=== PATIENT | male | born 1990 | race Caucasian/White ===

== ENCOUNTER 2023-05-18 15:51 | Outpatient (CLI) | payer OTHER, SELFPAY ==
--- NOTE | 2023-05-18 16:00 | CRLHL7_ITS ---
For Patients: As a result of the Century Cures Act, medical imaging exams and procedure reports are released immediately into your electronic medical record. You may view this report before your referring provider. If you have questions, please contact your health care provider. Indication: LOCALIZED SWELLING, PALPABLE LUMP Technique: Grayscale and color Doppler ultrasound of the right submandibular space performed. Comparison: None Findings: There is a lymph node within the submandibular region measuring 2.0 x 0.6 x 1.3 cm. Normal central fatty hilum is present. Normal internal vascularity. Other smaller lymph nodes are present in the adjacent tissues. Impression: Mildly reactive right submandibular lymph node. Dictated by Ry Ewing MD @ 05/21/2023 9:35:42 AM (Electronically Signed)
== END 2023-05-18 15:52 | disposition home or self-care (01) ==
LOC: US 15:53
PROVIDERS: PCP Family Medicine; Visit Provider Otolaryngology
DX: R22.1 Localized swelling, mass and lump, neck (principal)
CPT/HCPCS: 76536

== ENCOUNTER 2023-07-14 09:51 | Emergency (ER) | payer OTHER, SELFPAY ==
[2023-07-14 10:07] VITALS: BP 142/85; PULSE 86; RESP 18; TEMP 36.4; O2SAT 98
--- NOTE | 2023-07-14 11:20 | ED.GENADULT ---
HPI - General Adult General Date Seen: 07/14/23 Chief complaint: Cough Stated complaint: Cough Time Seen by Provider: 07/14/23 11:03 Source: patient Mode of arrival: ambulatory Limitations: no limitations History of Present Illness HPI narrative: Patient is a 33-year-old male who is here for evaluation of cough. He says he has been coughing for few days, it is getting better, a couple of his kids are also sick with cough. Declines COVID/flu/RSV testing. He says he is mostly here because he has a CT scan coming up in a couple of days any does not want have to miss that because of cough. He says that Dr. Boggs told him that steroids might help. No fevers or shortness of breath. Related Data Home Medications Medication Instructions Recorded Confirmed omeprazole 20 mg capsule,delayed 20 mg PO QDAY 12/04/22 06/26/23 release Previous Rx's Medication Instructions Recorded azithromycin 250 mg tablet See Rx Instructions PO .COMPLEX #6 05/08/23 (Zithromax Z-Atilio) tabs amoxicillin 875 mg-potassium 1 tab PO BID #20 tabs 05/30/23 clavulanate 125 mg tablet amoxicillin 875 mg-potassium 1 tab PO .bid - daily 20 days #30 06/26/23 clavulanate 125 mg tablet tabs famotidine 20 mg tablet (Pepcid) 20 mg PO BID 30 days #60 tabs 06/26/23 prednisone 20 mg tablet 20 mg PO BID #10 tabs 07/14/23 Allergies Allergy/AdvReac Type Severity Reaction Status Date / Time No Known Drug Allergies Allergy Verified 06/26/23 13:55 [facility] Social History Smoking Status: Current every day smoker Exam Narrative: Exam Narrative: Vital signs as noted above. In general, an alert, well-appearing patient. Breathing easily. Head: Normocephalic, atraumatic. Eyes: Pupils are equal reactive. Extraocular movements are full. Conjunctivae are normal. ENT: Mucous membranes are moist. Neck: Supple without lymphadenopathy. Heart: Regular rate and rhythm. No murmur or rub. Lungs: Clear bilaterally. No increased work of breathing, crackles or wheezes. Neurologic: Patient is alert and oriented to person and place. Speech is fluent. Face is symmetric. Moves all extremities equally. Affect: Normal. Skin: Warm and dry. Well perfused. Const: Vital Signs, click to edit/add: Vital Signs - 24 hr 07/14/23 10:07 Temperature 97.6 F Pulse Rate [Right Pulse Oximeter] 86 Respiratory Rate 18 Blood Pressure [Ri ght Upper Arm] 142/85 H Pulse Oximetry 98 Oxygen Delivery Me thod Room Air Documenting provider has reviewed patient's vital signs: yes Course Course ED Course: Reviewed with him that I think symptoms are viral, I do not hear any evidence of bronchospasm or pneumonia today. He would like to try prednisone so I have prescribed that for him, but discussed that I would not anticipate this will fix his cough. Symptoms will likely resolve without intervention over the next week or 2, primary care follow-up if not improving. Return for high fevers, shortness of breath or other worsening. Vital Signs Vital signs: Initial Vital Signs Temperature 97.6 F 07/14/23 10:07 Temperature Source Temporal Artery Scan 07/14/23 10:07 Pulse Rate 86 07/14/23 10:07 Respiratory Rate 18 07/14/23 10:07 Blood Pressure 142/85 H 07/14/23 10:07 Blood Pressure Mean 104 07/14/23 10:07 Blood Pressure Position Sitting 07/14/23 10:07 Pulse Oximetry 98 07/14/23 10:07 Oxygen Delivery Method Room Air 07/14/23 10:07 Vital Signs Temperature 97.6 F 07/14/23 10:07 Pulse Rate 86 07/14/23 10:07 Respiratory Rate 18 07/14/23 10:07 Blood Pressure 142/85 H 07/14/23 10:07 Pulse Oximetry 98 07/14/23 10:07 Oxygen Delivery Method Room Air 07/14/23 10:07 Temperature 97.6 F 07/14/23 10:07 Pulse Rate 86 07/14/23 10:07 Respiratory Rate 18 07/14/23 10:07 Blood Pressure 142/85 H 07/14/23 10:07 Pulse Oximetry 98 07/14/23 10:07 Oxygen Delivery Method Room Air 07/14/23 10:07 Discharge Plan Discharge Clinical Impression: Cough Patient Disposition: Home, Self-Care Condition: Stable Instructions: Acute Cough (ED) Additional Instructions: Prednisone as prescribed. Follow up with primary doctor if not improving over the next couple of weeks. Return for high fevers, chest pain, shortness of breath or other worsening. Prescriptions: New prednisone 20 mg tablet 20 mg PO BID Qty: 10 0RF No Action omeprazole 20 mg capsule,delayed release(DR/EC) 20 mg PO QDAY Patient Comments: TAKE 1 CAPSULE BY MOUTH ONCE DAILY WITH EVENING MEAL azithromycin [Zithromax Z-Atilio] 250 mg tablet See Rx Instructions PO .COMPLEX Qty: 6 0RF Rx Instructions: For 250 mg dose pack: take 500 mg today (day 1), then 250 mg for 4 days (days 2-5) PO amoxicillin-pot clavulanate 875-125 mg tablet 1 tab PO .bid - daily 20 Days Qty: 30 0RF Rx Instructions: Take 1 by mouth twice a day for 10 days and 1 by mouth daily for 10 days famotidine [Pepcid] 20 mg tablet 20 mg PO BID 30 Days Qty: 60 11RF amoxicillin-pot clavulanate 875-125 mg tablet 1 tab PO BID Qty: 20 0RF Follow Up/Referrals: Ry Toscano MD [Primary Care Provider] - [facility]
== END 2023-07-14 11:37 | disposition home or self-care (01) ==
LOC: ED 11:25
PROVIDERS: Emergency Provider Emergency Medicine; PCP Family Medicine
DX: R05.9 Cough, unspecified (principal)
CPT/HCPCS: 99283; 99284

== ENCOUNTER 2023-07-20 14:24 | Outpatient (CLI) | payer OTHER, SELFPAY ==
--- NOTE | 2023-07-20 15:00 | CRLHL7_ITS ---
For Patients: As a result of the Cures Act, medical imaging exams and procedure reports are released immediately into your electronic medical record. You may view this report before your referring provider. If you have questions, please contact your health care provider. INDICATION: Acute pharyngitis. TECHNIQUE: CT images were acquired through the neck soft tissues from above the orbits to the superior mediastinum during infusion of iodinated contrast. Multiplanar reconstructions. FINDINGS: Mildly prominent adenoidal lymphoid tissue in the nasopharynx. There is mild enlargement of the bilateral palatine tonsils suggesting acute inflammation. No tonsillar/peritonsillar abscess. A calcification is noted within the left tonsil consistent with chronic tonsillar inflammation. Soft palate is mildly edematous. The parapharyngeal fat is not distorted or displaced. There are numerous lymph nodes in the upper jugular lymph node chains and in the submandibular spaces consistent with reactive adenopathy. No pathologic fluid collection in the neck soft tissues. The epiglottis is not abnormally enlarged. The supraglottic region larynx and subglottic trachea are unremarkable allowing for some respiratory artifact. Thyroid is not abnormally enlarged. IMPRESSION: 1. Findings consistent with acute pharyngitis and reactive lymphadenopathy in the neck soft tissues. 2. No evidence of tonsillar or peritonsillar abscess nor evidence of upper airway obstruction at this time. Please note that all CT scans at this facility use dose modulation, iterative reconstruction, and/or weight-based dosing when appropriate to reduce radiation dose to as low as reasonably achievable. Dictated by Mack Corona MD @ 07/22/2023 8:14:00 PM (Electronically Signed)
== END 2023-07-20 14:25 | disposition home or self-care (01) ==
LOC: CT 14:24
PROVIDERS: PCP Family Medicine; Visit Provider Otolaryngology
DX: J02.9 Acute pharyngitis, unspecified (principal)
CPT/HCPCS: 70491; Q9967

== ENCOUNTER 2023-09-03 16:04 | Outpatient (CLI) | payer OTHER, SELFPAY | END 2023-09-03 16:05 | disposition home or self-care (01) | PROVIDERS: PCP Family Medicine; Visit Provider Family Medicine | DX: R53.83 Other fatigue (principal); R76.8 Other specified abnormal immunological findings in serum; Z11.59 Encounter for screening for other viral diseases | CPT/HCPCS: 80053; 84443; 87522 ==

== ENCOUNTER 2023-10-24 16:44 | Outpatient (CLI) | payer OTHER, SELFPAY ==
--- NOTE | 2023-10-24 17:00 | CRLHL7_ITS ---
For Patients: As a result of the Century Cures Act, medical imaging exams and procedure reports are released immediately into your electronic medical record. You may view this report before your referring provider. If you have questions, please contact your health care provider. INDICATION: Bloating, fullness, h/o hep C COMPARISON: 03/27/2022 TECHNIQUE: Real time moore scale imaging and color Doppler analysis was performed of the right upper quadrant. FINDINGS: The visualized patient`s liver is of normal size and has uniform echogenicity. There is a normal appearance of the hepatic IVC and proximal abdominal aorta. There is no evidence of ascites. The gallbladder is of normal size and there is no evidence of intraluminal stones or sludge. The gallbladder wall measures 3.1 mm in thickness. The common bile duct is of normal size and measures 5.8 mm in diameter at the level of the tony hepatis. The visualized pancreas appears normal. There is no evidence of a stone or hydronephrosis within the right kidney. The right kidney measures 12.1 cm in length. IMPRESSION: The visualized liver appears normal without intrahepatic mass or ascites. Normal gallbladder. Dictated by Ry Ewing MD @ 10/25/2023 11:50:50 AM (Electronically Signed)
== END 2023-10-24 16:45 | disposition home or self-care (01) ==
LOC: US 16:45
PROVIDERS: PCP Family Medicine; Visit Provider Family Medicine
DX: R14.0 Abdominal distension (gaseous) (principal); K21.9 Gastro-esophageal reflux disease without esophagitis
CPT/HCPCS: 76705

== ENCOUNTER 2023-11-27 16:18 | Outpatient (CLI) | payer OTHER, SELFPAY ==
--- NOTE | 2023-11-27 16:45 | CRLHL7_ITS ---
For Patients: As a result of the Century Cures Act, medical imaging exams and procedure reports are released immediately into your electronic medical record. You may view this report before your referring provider. If you have questions, please contact your health care provider. Indication: Sinus infections. Technique: Noncontrast axial CT of the paranasal sinuses with coronal reformats are provided. No comparisons. Findings: The visualized paranasal sinuses are clear. The ostiomeatal complexes are patent bilaterally. The visualized intraorbital contents appear within normal limits. Mild leftward nasal septal deviation. Impression: 1. Mild leftward nasal septal deviation. 2. Otherwise, unremarkable CT of the paranasal sinuses. Please note that all CT scans at this facility use dose modulation, iterative reconstruction, and/or weight-based dosing when appropriate to reduce radiation dose to as low as reasonably achievable. Dictated by Saul Sethi MD @ 11/27/2023 5:34:06 PM (Electronically Signed)
== END 2023-11-27 16:19 | disposition home or self-care (01) ==
LOC: CT 16:18
PROVIDERS: PCP Nurse Practitioner Family; Visit Provider Nurse Practitioner Family
DX: J34.89 Other specified disorders of nose and nasal sinuses (principal); J34.2 Deviated nasal septum
CPT/HCPCS: 70486

== ENCOUNTER 2023-12-21 10:48 | Outpatient (CLI) | payer OTHER, SELFPAY ==
--- NOTE | 2023-12-21 11:00 | CT_ITS ---
Patient: CEZAR GUSMAN Facility:?[facility] Patient ID:?[id number] Site Patient ID:?[id number]. Site :?1990 Study:?CT-Chest W/O-12/21/2023 11:59:48 AM Ordering Physician:DOYLE Final Report: Indication: Abnormal CHEST XRAY ,FB SENSATION IN THE THROAT Technique: CT of the chest was performed without intravenous contrast. Please note that all CT scans at this facility use dose modulation, iterative reconstruction, and/or weight-based dosing when appropriate to reduce radiation dose to as low as reasonably achievable. Comparison: Chest radiograph 12/14/2023 Findings: Medical devices: None. Thyroid: Normal. Lymph nodes: Limited evaluation without IV contrast. No supraclavicular, axillary, mediastinal, or hilar lymphadenopathy. Vasculature: Limited evaluation without IV contrast. Aorta and main pulmonary artery diameters are within normal range. Heart: No coronary artery calcification. No pericardial effusion. Other mediastinal structures: No significant abnormality. Lung parenchyma: No significant abnormality. Airways: No significant abnormality. Pleura: No significant abnormality. Chest wall: Minimal bilateral gynecomastia. Upper abdomen: No significant abnormality. Musculoskeletal: No significant abnormality. Impression: No intrathoracic abnormality is seen. Please note that all CT scans at this facility use dose modulation, iterative reconstruction, and/or weight-based dosing when appropriate to reduce radiation dose to as low as reasonably achievable. Dictated by Geronimo Christianson MD @ 12/21/2023 1:12:34 PM Signed by:?Geronimo Christianson MD @12/21/2023 1:12:34 PM (Electronic Signature)
--- NOTE | 2023-12-21 11:30 | CT_ITS ---
Patient: CEZAR GUSMAN Facility:?[facility] Patient ID:?[id number] Site Patient ID:?[id number]. Site :?1990 Study:?CT-ST Neck W/IV-12/21/2023 12:04:34 PM Ordering Physician:DOYLE Final Report: INDICATION: Foreign body sensation in the throat TECHNIQUE: CT neck was performed following administration of 98 mL of Isovue 370 IV contrast. COMPARISON: 07/22/2023. FINDINGS: Soft tissues: Normal. Pharynx/airway: The oropharynx, hypopharynx, larynx, and trachea are normal. Moderate narrowing of the nasopharynx. Major salivary glands: Normal. Thyroid: Normal. Lymph nodes: Scattered subcentimeter lymph nodes are present in the neck bilaterally, none of which is pathological by size or morphologic criteria. Persistent moderately enlarged bilateral palatine and adenoid tonsils. Vessels: Patent. Bones: Normal. Lung apices: Clear. Visualized brain parenchyma: Normal. Additional comment: Normal. IMPRESSION: Persistent moderately enlarged bilateral palatine and adenoid tonsils with moderate narrowing of the nasopharynx. Findings may represent tonsillar hypertrophy. Please note that all CT scans at this facility use dose modulation, iterative reconstruction, and/or weight-based dosing when appropriate to reduce radiation dose to as low as reasonably achievable. Dictated by Geronimo Christianson MD @ 12/21/2023 12:59:15 PM Signed by:?Geronimo Christianson MD @12/21/2023 12:59:15 PM (Electronic Signature)
== END 2023-12-21 10:49 | disposition home or self-care (01) ==
LOC: CT 10:53
PROVIDERS: PCP Nurse Practitioner Family; Visit Provider Otolaryngology
DX: R93.89 Abnormal findings on diagnostic imaging of other specified body structures (principal); J35.1 Hypertrophy of tonsils; R22.1 Localized swelling, mass and lump, neck
CPT/HCPCS: 70491; 71250; Q9967

== ENCOUNTER 2024-02-15 15:47 | Outpatient (CLI) | payer OTHER, SELFPAY ==
--- NOTE | 2024-02-15 16:00 | CT_ITS ---
Patient: CEZAR GUSMAN Facility:?[facility] Patient ID:?[id number] Site Patient ID:?[id number]. Site :?1990 Study:?CT-Abdomen/Pelvis W/ 150CC ISOVUE 270-02/15/2024 4:22:30 PM Ordering Physician:NANCY Final Report: INDICATION: Bloating. Gastroesophageal reflux disease. TECHNIQUE: CT images of the abdomen and pelvis following intravenous contrast. COMPARISON: None. FINDINGS: No concerning opacities in the visualized lungs. No pleural effusion. The heart size is normal. The liver, gallbladder, spleen, and pancreas are unremarkable. The adrenal glands and kidneys are unremarkable. The stomach is [id number] distended. No abnormally dilated loops of bowel. The appendix is unremarkable. The abdominal aorta is normal in caliber. No pathologically enlarged lymph nodes. Small fat containing umbilical hernia. No free fluid or free air. The urinary bladder is [id number] distended. The prostate gland is present. No aggressive osseous lesions. IMPRESSION: No acute abnormality in the abdomen or pelvis. Please note that all CT scans at this facility use dose modulation, iterative reconstruction, and/or weight-based dosing when appropriate to reduce radiation dose to as low as reasonably achievable. Dictated by Cristino Granados MD @ 02/17/2024 9:38:28 PM Signed by:?Cristino Granados MD @02/17/2024 9:38:28 PM (Electronic Signature)
== END 2024-02-15 15:48 | disposition home or self-care (01) ==
LOC: CT 15:48
PROVIDERS: PCP Nurse Practitioner Family; Visit Provider Internal Medicine Gastroenterology
DX: K21.9 Gastro-esophageal reflux disease without esophagitis (principal); R14.0 Abdominal distension (gaseous); K62.5 Hemorrhage of anus and rectum; R10.9 Unspecified abdominal pain; R19.7 Diarrhea, unspecified
CPT/HCPCS: 74177; Q9967

== ENCOUNTER 2025-02-13 10:42 | Outpatient (CLI) | payer BC, SELFPAY ==
--- NOTE | 2025-02-13 10:45 | CRLHL7_ITS ---
For Patients: As a result of the Century Cures Act, medical imaging exams and procedure reports are released immediately into your electronic medical record. You may view this report before your referring provider. If you have questions, please contact your health care provider. Indication: Lump felt at the right/anterior side of the neck Technique: Grayscale and color Doppler ultrasound of the right neck soft tissues performed. Comparison: CT neck 12/21/2023 Findings: Mildly prominent lymph node is present adjacent to the submandibular gland which measures 1.7 x 0.8 x 1.8 cm. Additional mildly prominent right anterior cervical lymph node is present which measures 1.9 x 0.7 x 0.9 cm. No abnormal vascularity. Impression: Mildly prominent right cervical lymph nodes. Dictated by Ry Ewing MD @ 02/13/2025 3:40:20 PM (Electronically Signed)
== END 2025-02-13 10:43 | disposition home or self-care (01) ==
PROVIDERS: PCP Nurse Practitioner Family; Visit Provider Otolaryngology
DX: R22.1 Localized swelling, mass and lump, neck (principal); R59.0 Localized enlarged lymph nodes
CPT/HCPCS: 76536

== ENCOUNTER 2025-02-19 10:26 | Outpatient (CLI) | payer BC, SELFPAY | END 2025-02-19 10:27 | disposition home or self-care (01) | PROVIDERS: PCP Nurse Practitioner Family; Visit Provider Nurse Practitioner Family | DX: R09.A2 Foreign body sensation, throat (principal); J35.1 Hypertrophy of tonsils; Z13.0 Encounter for screening for diseases of the blood and blood-forming organs and certain disorders involving the immune mechanism | CPT/HCPCS: 80053; 85025; 85610 ==

== ENCOUNTER 2025-03-13 10:44 | Day surgery (SDC) | payer BC, SELFPAY ==
--- NOTE | 2025-03-13 11:18 | W.PM.ENTPN ---
ENT-PN: Subj Subjective Date Seen: 03/13/25 Interval history: Patient was scheduled for tonsillectomy today but has developed what appears to be a left upper tooth abscess with left facial swelling. Progress Note: A&P Assessment and plan (1) Dental infection: Status: Acute Plan Left dental abscess. Recommend treating this and cancelling surgery in rescheduling for next week. I will prescribe Augmentin and. He has a dental appointment Sunday. He will come to the emergency room if symptoms worsen. Time Spent With Patient Total time spent: 20 minutes Exam Narrative: Exam Narrative: General skin neuro respiratory gait peripheral vascular vocal quality skin of head neck are all negative except nontoxic tenderness left upper molar posterior. This tooth has had multiple fillings. He has some swelling on the left upper cheek as well without significant erythema and he is nontoxic. There is no purulent drainage in the mouth. The Lone left upper molar was very tender to tapping. Note well as cheek was swollen it was not into rated
--- NOTE | 2025-03-13 11:24 | SUR.PREOP ---
Case was cancelled due to suspicious oral infection, possible abcess tooth. Pt was advised to see a dentist. antibiotic prescribed
== END 2025-03-13 11:29 | disposition home or self-care (01) ==
LOC: OR 10:46 → MEDSURG 10:47
PROVIDERS: PCP Nurse Practitioner Family; Visit Provider Otolaryngology
DX: Z53.09 Procedure and treatment not carried out because of other contraindication (principal); K04.7 Periapical abscess without sinus; R22.0 Localized swelling, mass and lump, head

== ENCOUNTER 2025-03-18 07:14 | Day surgery (SDC) | payer BC, SELFPAY ==
[2025-03-18] VITALS (18 sets, daily range): BP systolic 131–206; BP diastolic 88–145; PULSE 74–99; RESP 16–18; TEMP 36–37.1; O2SAT 93–99; BMI 45.1
[2025-03-18] MEDS: LACTATED RINGERS 1000 ML 1,000 ML 100 ML IV ×2 (07:20→09:31)
--- NOTE | 2025-03-18 08:41 | P.ANES_ITS ---
Anesthesia Charges Start Date/Time Anesthesia Start Date: 03/18/25 Anesthesia Start Time: 08:06 Stop Date/Time Anesthesia Stop Date: 03/18/25 Anesthesia Stop Time: 08:52 Coding CPT Codes CPT Codes: ANESTH PROCEDURE ON MOUTH - 50816 ([id number]) P3 - PATIENT W/SEVERE SYS DISEASE, QK - BLOOD BANK LABORATORY TECHNICIAN 2-4 CNCRNT ANES PROC, QX - COMMERCIAL PHOTOGRAPHER SVC W/ MD MED DIRECTION
--- NOTE | 2025-03-18 08:41 | W.ANESCHARGE ---
Anesthesia Charges Start Date/Time Anesthesia Start Date: 03/18/25 Anesthesia Start Time: 08:06 Stop Date/Time Anesthesia Stop Date: 03/18/25 Anesthesia Stop Time: 08:52 Coding CPT Codes CPT Codes: ANESTH PROCEDURE ON MOUTH - 35771 ([id number]) P3 - PATIENT W/SEVERE SYS DISEASE, QK - VPK TEACHER 2-4 CNCRNT ANES PROC, QX - GRIEVANCE AND APPEALS SPECIALIST SVC W/ MD MED DIRECTION
--- NOTE | 2025-03-18 08:41 | W.PM.ENTPROC ---
Procedure Note Date of procedure: 03/18/25 Procedure: Preoperative diagnosis chronic tonsillitis, adenotonsillar hypertrophy, upper airway obstruction, nasal obstruction Postoperative diagnosis same Procedure adenotonsillectomy Under general endotracheal anesthesia the patient was prepped and draped in usual fashion. The McIvor mouth gag was inserted the tongue retracted forward. No submucous cleft was noted on inspection or palpation. The right and left tonsils were removed with a combination of needlepoint cautery, bipolar cautery and suction cautery. Meticulous hemostasis was achieved. The membranous portion of the uvula was amputated as it was markedly elongated. Mucosal edges of uvula in the upper tonsil pillars were secured with interrupted 3-0 Vicryl sutures. The adenoid pad was visualized with a laryngeal mirror and removed with suction cautery. The patient was extubated in the operating room taken recovery in satisfactory condition. Blood loss was less than 10 mL. Surgeon: Rigoberto Causey MD
[2025-03-18] MEDS: fentaNYL 100 MCG/2 ML inj 50 MCG IVP ×2 (08:55→09:05)
--- NOTE | 2025-03-18 08:58 | P.ANES_ITS ---
Anesthesia Charges Start Date/Time Anesthesia Start Date: 03/18/25 Anesthesia Start Time: 08:06 Stop Date/Time Anesthesia Stop Date: 03/18/25 Anesthesia Stop Time: 08:52 Coding CPT Codes CPT Codes: ANESTH PROCEDURE ON MOUTH - 05764 ([id number]) P3 - PATIENT W/SEVERE SYS DISEASE, QK - ROUGH RICE GRADER 2-4 CNCRNT ANES PROC, QX - DAIRY CATTLE FARM MANAGER SVC W/ MD MED DIRECTION
--- NOTE | 2025-03-18 08:58 | W.ANESCHARGE ---
Anesthesia Charges Start Date/Time Anesthesia Start Date: 03/18/25 Anesthesia Start Time: 08:06 Stop Date/Time Anesthesia Stop Date: 03/18/25 Anesthesia Stop Time: 08:52 Coding CPT Codes CPT Codes: ANESTH PROCEDURE ON MOUTH - 62825 ([id number]) P3 - PATIENT W/SEVERE SYS DISEASE, QK - INSIDE BARREL POLISHER 2-4 CNCRNT ANES PROC, QX - MANAGER RESEARCH DEVELOPMENT SVC W/ MD MED DIRECTION
[2025-03-18] MEDS: LABETALOL HCL 5 MG/ML inj IVP (09:28)
[2025-03-18] MEDS: AMOXICILLIN/CLAVULANATE 875 mg/125 mg TABLET PO (10:19)
[2025-03-18] MEDS: OXYCODONE 1 MG/ML ORAL SOLN 5 MG PO ×2 (10:28→16:43)
[2025-03-18] MEDS: ACETAMINOPHEN 160 MG/5 ML CUP 320 MG PO ×2 (10:54→16:43)
[2025-03-18] MEDS: IBUPROFEN 100 MG/5 ML SUSP 200 MG PO (13:20)
--- NOTE | 2025-03-18 17:42 | PC.NURSE ---
Discharge: patient pleasant and cooperative, A&O. VSS, afebrile. SpO2 maintained above 90% on RA. Pain managed with PRN medication. Tolerating clear liquids. IV removed with tip intact. Discharge instructions provided, all questions answered. Discharged to home.
== END 2025-03-18 17:06 | disposition home or self-care (01) ==
LOC: OR 07:15 → MEDSURG 07:18
PROVIDERS: PCP Nurse Practitioner Family; Visit Provider Otolaryngology
PROC: (CPT 42821; principal; 2025-03-18 08:15)
DX: J35.01 Chronic tonsillitis (principal); J35.3 Hypertrophy of tonsils with hypertrophy of adenoids; J34.89 Other specified disorders of nose and nasal sinuses
CPT/HCPCS: 42821; 00170; 88304; A9270; J0330; J1100; J2250; J2405; J2704; J3010; J3490; J7120

== ENCOUNTER 2025-05-05 10:50 | Outpatient (CLI) | payer BC, SELFPAY ==
--- NOTE | 2025-05-05 11:59 | P.ANES_ITS ---
Anesthesia Charges Start Date/Time Anesthesia Start Date: 05/05/25 Anesthesia Start Time: 11:18 Stop Date/Time Anesthesia Stop Date: 05/05/25 Anesthesia Stop Time: 11:53 Coding CPT Codes CPT Codes: ANES LWR INTST NDSC NOS - 10404 ([id number]) P3 - PATIENT W/SEVERE SYS DISEASE, QK - RADIO INTERFERENCE TROUBLE SHOOTER 2-4 CNCRNT ANES PROC, QX - BOOSTER PUMP OILER SVC W/ MD MED DIRECTION
--- NOTE | 2025-05-05 11:59 | W.ANESCHARGE ---
Anesthesia Charges Start Date/Time Anesthesia Start Date: 05/05/25 Anesthesia Start Time: 11:18 Stop Date/Time Anesthesia Stop Date: 05/05/25 Anesthesia Stop Time: 11:53 Coding CPT Codes CPT Codes: ANES LWR INTST NDSC NOS - 50683 ([id number]) P3 - PATIENT W/SEVERE SYS DISEASE, QK - CATHOLIC PRIEST 2-4 CNCRNT ANES PROC, QX - USER ACCEPTANCE TESTER SVC W/ MD MED DIRECTION
--- NOTE | 2025-05-05 12:20 | P.ANES_ITS ---
Anesthesia Charges Start Date/Time Anesthesia Start Date: 05/05/25 Anesthesia Start Time: 11:18 Stop Date/Time Anesthesia Stop Date: 05/05/25 Anesthesia Stop Time: 11:53 Coding CPT Codes CPT Codes: ANES LWR INTST NDSC NOS - 18732 ([id number]) QK - ENGINEERING GROUP LEADER 2-4 CNCRNT ANES PROC, QX - STORM DOOR MAKER SVC W/ MD MED DIRECTION, P3 - PATIENT W/SEVERE SYS DISEASE
--- NOTE | 2025-05-05 12:20 | W.ANESCHARGE ---
Anesthesia Charges Start Date/Time Anesthesia Start Date: 05/05/25 Anesthesia Start Time: 11:18 Stop Date/Time Anesthesia Stop Date: 05/05/25 Anesthesia Stop Time: 11:53 Coding CPT Codes CPT Codes: ANES LWR INTST NDSC NOS - 36130 ([id number]) QK - INNOVATIONS PARAPROFESSIONAL 2-4 CNCRNT ANES PROC, QX - ASSOCIATE DIRECTOR OF NURSING SVC W/ MD MED DIRECTION, P3 - PATIENT W/SEVERE SYS DISEASE
== END 2025-05-05 10:51 | disposition home or self-care (01) ==
LOC: OP CLINIC 10:51
PROVIDERS: PCP Nurse Practitioner Family; Visit Provider Surgery
DX: K62.5 Hemorrhage of anus and rectum (principal); D12.0 Benign neoplasm of cecum; D12.2 Benign neoplasm of ascending colon; K64.8 Other hemorrhoids; K57.30 Diverticulosis of large intestine without perforation or abscess without bleeding
CPT/HCPCS: 00811; 45385; 88305; J2250; J2704

== ENCOUNTER 2025-07-14 10:12 | Outpatient (CLI) | payer OTHER, SELFPAY ==
--- NOTE | 2025-07-14 10:30 | CRLHL7_ITS ---
For Patients: As a result of the 21st Century Cures Act, medical imaging exams and procedure reports are released immediately into your electronic medical record. You may view this report before your referring provider. If you have questions, please contact your health care provider. EXAM: NM GASTRIC EMPTYING SCAN Indication : 35 year-old man with chronic GERD. TECHNIQUE: Radiopharmaceutical: 0.92 [place] 99m Tc sulfur colloid, combined with a standard egg meal, administered orally. Patient consumed 100% of solid portion of standard meal and water. Image acquisition: Static anterior/posterior images were obtained immediately after administration, and at 30, 60, 90, 120, and 240 minutes post radiotracer administration. At each time point, the geometric mean was calculated based on ROIs placed over the stomach. Comparison: None Findings: Radiotracer is seen to progress from the gastric fundus to the antrum and into the small bowel. Summary of gastric activity*: 1 hour: 48% empty, 52% retained (normal is <30 and <90% retention). 2 hours: 66% empty, 37% retained (normal is <60% retention). 4 hours: 99% empty,1%retained (normal is <10% retention). Impression: Normal solid gastric emptying with only 1% retained radiolabeled gastric contents at 4 hours post ingestion. * Data are from Am J Gastroenterol. 2008; 103:753-763 Dictated by Warren Higuera MD @ 07/14/2025 9:57:35 PM (Electronically Signed)
== END 2025-07-14 10:13 | disposition home or self-care (01) ==
PROVIDERS: PCP Nurse Practitioner Family; Visit Provider Internal Medicine Gastroenterology
DX: K21.9 Gastro-esophageal reflux disease without esophagitis (principal)
CPT/HCPCS: 78264; A9541